=== PATIENT | male | born 1940 | race Caucasian/White ===

== ENCOUNTER → 2018-10-19 | Outpatient (CLI) | payer MEDICARE | END | disposition home or self-care (01) | LOC: CVU 08:20 | PROVIDERS: ATTEND Family Medicine | DX: I73.9 Peripheral vascular disease, unspecified (principal); I10 Essential (primary) hypertension; E78.5 Hyperlipidemia, unspecified; I72.4 Aneurysm of artery of lower extremity; Z87.891 Personal history of nicotine dependence | CPT/HCPCS: 93922; 93925 ==

== ENCOUNTER → 2020-05-14 | Outpatient (CLI) | payer MEDICARE ==
[~2020-05-14] MED LIST: OMNIPAQUE 350 MG/ML, 100ML BOTTLE ONE
== END | disposition home or self-care (01) ==
LOC: CFH 13:15
PROVIDERS: ATTEND Family Medicine
DX: I74.5 Embolism and thrombosis of iliac artery (principal); I70.0 Atherosclerosis of aorta; J98.4 Other disorders of lung; R91.1 Solitary pulmonary nodule; M47.816 Spondylosis without myelopathy or radiculopathy, lumbar region; N28.1 Cyst of kidney, acquired; Q25.46 Tortuous aortic arch
CPT/HCPCS: 74174; 82565; Q9967